=== PATIENT | female | born 2000 | race Caucasian/White ===

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

== ENCOUNTER 2023-11-01 10:21 | Emergency (ER) | payer BC, SELFPAY ==
[2023-11-01 10:33] VITALS: BP 108/64; PULSE 102; RESP 16; TEMP 36.6; O2SAT 99; BMI 22.7
--- NOTE | 2023-11-01 11:12 | ED.HA ---
HPI - Headache General Chief Complaint: Headache Stated Complaint: migraine Time Seen by Provider: 11/01/23 11:56 Source: patient Mode of arrival: ambulatory Limitations: no limitations History of Present Illness HPI Narrative: 23-year-old female with a history of migraine disorder who currently takes Topamax daily, receives Botox injection and a monthly migraine medication presents the ER with concerns of migraine for 13 days despite her home medications. Patient spoke to her neurologist to us in [facility] as the patient is currently here for [facility] who recommended she come into the ER for further management. She does arrive with her treatment recommendation from her neurologist. She describes her headache as generalized with blurry vision. No nausea, vomiting, dizziness, neck pain, neck stiffness, recent illnesses or fevers or chills. Related Data Previous Rx's Medication Instructions Recorded ondansetron 4 mg disintegrating 4 mg PO Q8H PRN nausea and 12/08/21 tablet vomiting #20 tabs Allergies Allergy/AdvReac Type Severity Reaction Status Date / Time peanut Allergy Intermediate Nausea Verified 11/01/23 10:33 shellfish derived Allergy Intermediate Difficulty Verified 11/01/23 10:33 Swallowing Review of Systems Review of Systems: Yes all other systems are reviewed and are negative Constitutional: Constitutional: Reports no additional constitutional complaints, Denies body ache(s), Denies chills, Denies fever(s), Reports headache(s) and Denies weakness Eyes: Eyes: Reports no additional eye complaints, Reports blurry vision and Denies change in vision ENT: Reports system reviewed and no additional complaints, except as documented, Denies dizziness, Reports headache(s), Denies nasal congestion, Denies nasal discharge and Denies neck pain Cardiovascular: Cardiovascular: Reports no additional cardiovascular complaints, Denies chest pain, Denies leg edema and Denies dyspnea Respiratory: Respiratory: Reports no additional respiratory complaints, Denies cough and Denies dyspnea Gastrointestinal: Gastrointestinal: Reports no additional gastrointestinal complaints, Denies abdominal pain, Denies diarrhea, Denies nausea and Denies vomiting Genitourinary: Genitourinary: Reports no additional female genitourinary complaints and Denies urinary incontinence Musculoskeletal: Musculoskeletal: Reports no additional musculoskeletal complaints, Denies back pain, Denies arthralgias, Denies joint swelling, Denies neck pain, Denies numbness and Denies tingling Integumentary/Breasts: Skin/Breast: Reports system reviewed and no additional complaints, except as docu and Denies rash Neurologic: Reports system reviewed and no additional complaints, except as documented, Denies Abnormal speech present, Denies dizziness, Reports headache(s), Denies numbness, Denies tingling and Denies weakness PMFSH Past Medical History Attestation statement: The following information was validated with the patient. Source: old records reviewed and nursing notes reviewed Medical History Migraine GERD (gastroesophageal reflux disease) Social History Social History Patient Tobacco Use Status: Never used Tobacco Advance Directives: No Physical Exam Vital Signs: Vital Signs: Last Vital Signs Temp 97.8 F 11/01/23 10:33 Pulse 102 H 11/01/23 10:33 Resp 16 11/01/23 10:33 BP 108/64 11/01/23 10:33 Pulse Ox 99 11/01/23 10:33 O2 Del Method Room Air 11/01/23 10:33 BMI result Body Mass Index 22.7 Const: General: cooperative, healthy appearing, comfortable and no acute distress Orientation/consciousness: patient oriented x3 Limitations: no limitations HEENT: Head: Yes normal to inspection and No Temporal artery tenderness present Ears: hearing grossly normal bilaterally and TM's normal bilaterally General nose exam: Normal external nose present Face and sinus: Yes normal facial exam Mouth: Normal oral and palatal mucosa present Throat: Yes posterior oropharynx normal, Yes tonsils normal and Yes uvula midline Eyes: General: appearance normal, both eyes and all related structures Pupils: Equal, round and reactive pupils present Neck: Neck: Yes normal visual inspection, Yes full ROM, Yes no lymphadenopathy and Yes no meningeal signs Chest: Chest palpation & inspection: normal inspection of the chest Resp: Effort & Inspection: normal respiratory effort Auscultation: clear to auscultation bilaterally Cardio: Rate: regular rate Rhythm: regular rhythm Peripheral pulses: Peripheral pulses 2+ throughout GI: Inspection: Yes normal to inspection Palpation (GI): Soft to palpation and nontender Auscultation: normal bowel sounds Back/Spine/Pelvis: Thoracic/Lumbar Spine: thoracic and lumbar spine normal to inspection Skin: General skin exam: no rashes or lesions noted Neuro: General: patient oriented x3, moves all extremities, no meningeal signs, no focal motor deficits and normal sensation to monofilament Cranial nerves: Yes CN's II-XII intact bilaterally, Yes Equal, round and reactive pupils present, Yes Bilaterally intact EOM present, Yes Nystagmus not present, Yes Normal facial strength present and Yes Midline tongue present Cognition (Neuro): normal cognition Speech: No Abnormal speech present Gait exam (Neuro): Normal gait present Motor exam (neuro): 5/5 motor strength present throughout Sensory Exam: Normal double simultaneous stimulation for sensation Extrem: General: Yes normal to inspection Course Course Course Narrative: This is an RME: Additional HPI, ROS, PE not included below will be deferred to primary provider. Patient is a 22 presents department for evaluation of migraine intemittent over past 2 weeks, typical of her usual migraine not responding to medications. She is here currently for school, she contacted her neurologist who advised her to come to ED for ?migraine infusion? she presents a written order sheet in regards to this including Depakote. No red flag symptoms. Plan: UA/hCG Reevaluation(s) Reevaluation #1: 1415-Vision is back to baseline with no complaints of visual disturbances. Headache much improved but not completely resolved. Patient feels comfortable going home and does not feel like that she needs steps two in her migraine treatment plan. Recommend she follow up outpatient with her providers. Reviewed worrisome signs and symptoms of when to return to the emergency room. Comfortable plan for discharge home. Medications Administered Discontinued Medications Generic Name Dose Route Start Last Admin Trade Name Freq PRN Reason Stop Dose Admin Diphenhydramine HCl 25 mg 11/01/23 12:10 11/01/23 13:19 Diphenhydramine Hcl 50 Mg/Ml Vial IVPUSH 11/01/23 12:11 25 mg ONCE ONE Administration Sodium Chloride 1,000 mls @ 999 mls/hr 11/01/23 12:10 11/01/23 14:15 Ns IV 11/01/23 13:10 Infused .Q1H1M STA Infusion Ketorolac Tromethamine 30 mg 11/01/23 12:10 11/01/23 13:14 Ketorolac Tromethamine 30 Mg/Ml Vial IVPUSH 11/01/23 12:11 30 mg ONCE ONE Administration Prochlorperazine Edisylate 5 mg 11/01/23 12:10 11/01/23 13:23 Prochlorperazine Edisylate 10 Mg/2 Ml Vial IVPUSH 11/01/23 12:11 5 mg ONCE ONE Administration Medical Decision Making Medical Decision Making [facility] Narrative: 23-year-old female with a history of migraine disorder who currently takes Topamax daily, receives Botox injection and a monthly migraine medication presents the ER with concerns of migraine for 13 days despite her home medications. Patient spoke to her neurologist to us in [facility] as the patient is currently here for [facility] who recommended she come into the ER for further management. She does arrive with her treatment recommendation from her neurologist. She describes her headache as generalized with blurry vision. No nausea, vomiting, dizziness, neck pain, neck stiffness, recent illnesses or fevers or chills. Normal neuro exam with no focal deficits or red flag symptoms Reviewed migraine treatment plan from her neurologist which includes normal saline, Compazine, and Toradol in the initial treatment. If no improvement after the 1st step they do recommend an infusion of Depakote. will place PIV, give IVF, toradol, compazine Differential Diagnosis Differential Diagnoses: The differential diagnosis associated with the presentation includes migraine low concern for pseudotumour cerebri, menigitis/encephalitis, ICH, basilar skull fracture, temporal arteritis Admission/Observation Consideration of admission/observation: Escalation of care including admission/observation considered Lab Data MDM Lab Attestation statement: I reviewed the patient's lab results. Labs: Lab Results 11/01/23 Range/Units 11:23 Urine Color Dark Yellow Urine Appearance Cloudy Urine pH 7.0 (5.0-9.0) Ur Specific [place] 1.015 (1.005-1.025) Urine Protein Negative (Neg-Trace) mg/dL Urine Glucose (UA) Negative (Negative) mg/dL Urine Ketones Negative (Negative) mg/dL Urine Blood Negative (Negative) Urine Nitrite Negative (Negative) Ur Leukocyte Esterase Negative (Negative) Urine Test NEGATIVE (NEGATIVE) External Record Review External record reviewed: Outpatient record Tests considered The following testing was considered but not selected: no focal neuro deficits or red flag symptoms to usggest need for CT HEad Prescription Management I considered prescription management with: Pain Medication Discharge Plan Discharge Clinical Impression: Migraine Patient Disposition: Home, Self-Care Instructions: Migraine Headache (ED) Additional Instructions: continue to follow-up with your outpatient providers Return for any worsening symptoms Prescriptions: No Action ondansetron 4 mg tablet,disintegrating 4 mg PO Q8H PRN (Reason: nausea and vomiting) Qty: 20 0RF
[2023-11-01 11:32] LABS: Appearance Urine Cloudy; Color Urine Dark Yellow; Glucose Urine UA Negative (Negative); Leukocyte Esterase Urine Negative (Negative); Nitrite Urine Negative (Negative); Specific Gravity - Urine 1.015 (1.005-1.025); Urine Blood Negative (Negative); Urine Ketones Negative (Negative); Urine Protein Negative (Neg-Trace)
[2023-11-01 11:37] LABS: UPreg QC Valid YES; Urine Pregnancy NEGATIVE (NEGATIVE)
[2023-11-01] MEDS: Ketorolac Tromethamine 30 MG/ML VIAL IVPUSH (13:14)
[2023-11-01] MEDS: 0.9 % Sodium Chloride 1,000 ML 999 ML IV (13:16)
[2023-11-01] MEDS: diphenhydrAMINE HCL 50 MG/ML VIAL 25 MG IVPUSH (13:19)
[2023-11-01] MEDS: Prochlorperazine Edisylate 10 MG/2 ML VIAL 5 MG IVPUSH (13:23)
== END 2023-11-01 14:24 | disposition home or self-care (01) ==
PROVIDERS: Nurse Practitioner Family; Emergency Provider Emergency Medicine
DX: G43.909 Migraine, unspecified, not intractable, without status migrainosus (principal); K21.9 Gastro-esophageal reflux disease without esophagitis; Z79.899 Other long term (current) drug therapy
CPT/HCPCS: 81003; 81025; 96361; 96374; 96375; 99284; J0737; J1200; J1885